=== PATIENT | female | born 1930 | race Caucasian/White ===

== ENCOUNTER 2017-04-17 11:43 | Inpatient (IN) | payer BC ==
[~2017-04-17] VITALS: Ht 165.1 cm; Wt 48.1 kg
[2017-04-17] VITALS (24 sets, daily range): BP systolic 50–143; BP diastolic 22–95; PULSE 104–143; RESP 16–33; Ht 165.1 cm; Wt 48.1 kg
[~2017-04-17 11:43] MED LIST: ALPR0.25 PO; DIGO125T PO; LOSA100T7 PO; METO-448 PO; ONDA4TAB35 PO; RISE150T3 PO; WARF3TAB PO
[2017-04-17] MEDS ORDERED: SOD CHLORIDE 0.9% 1,000 ML IV STA (13:33)
[2017-04-17] MEDS ORDERED: ONDANSETRON 4 MG INJ IV STA (13:33)
[2017-04-17] MEDS ORDERED: morphine 2 MG INJ IV STA (13:33)
[2017-04-17 13:46] LABS: ADD SCAN DIFF NO
[2017-04-17 13:55] LABS: ABNORMAL IP MESSAGE 1; HEMATOCRIT 34.3 % (37.0-47.0); HEMOGLOBIN 11.6 g/dl (12.0-16.0); MEAN CORPUSCULAR HEMOGLOBIN 31.2 pg (29.0-33.0); MEAN CORPUSCULAR HGB CONC 33.8 g/dl (32.0-37.0); MEAN CORPUSCULAR VOLUME 92.2 fl (82.0-101.0); MEAN PLATELET VOLUME 10.6 fl (7.4-10.4); PLATELET COUNT 436 10^3/UL (140-415); RED BLOOD COUNT 3.72 10^6/ul (4.20-5.40); RED CELL DISTRIBUTION WIDTH 13.2 % (11.5-14.5); WHITE BLOOD COUNT 25.5 10^3/ul (4.8-10.8)
[2017-04-17 14:11] LABS: INR 1.66; PROTIME 19.7 Sec (12.2-14.2); PT RATIO 1.5
[2017-04-17 14:12] LABS: PARTIAL THROMBOPLASTIN TIME 42.4 Sec (25.0-35.0)
[2017-04-17 14:15] LABS: ALBUMIN 4.1 g/dl (3.3-4.9); ALBUMIN/GLOBULIN RATIO 1.17; BILIRUBIN,INDIRECT 0.5 mg/dl (0-1.1); BILIRUBIN,TOTAL 0.5 mg/dl (0.2-1.3); CALCIUM 8.8 mg/dl (8.4-10.2); CREATININE 2.87 mg/dl (0.44-1.00); POTASSIUM 5.5 mmol/L (3.5-5.1); TOTAL PROTEIN 7.6 g/dl (6.1-8.1)
[2017-04-17 14:25] LABS: MONOCYTE # 1.8 10^3/ul (0.3-0.9); NEUTROPHIL # 21.7 10^3/ul (1.6-7.5)
[2017-04-17 14:26] LABS: PLATELET ESTIMATE PLT APPEAR ADEQUATE
[2017-04-17 14:29] LABS: TROPONIN-I 10.8 ng/ml (0.00-0.12)
[2017-04-17] MEDS ORDERED: HEPARIN 1000 UNITS/ML 10 ML INJ IV STA (14:40)
[2017-04-17] MEDS ORDERED: HEPARIN 25000 UNITS/250 ML 250 ML IV STA (14:40)
--- NOTE | 2017-04-17 14:53 | RADRPT ---
PROCEDURE: XR Chest. CLINICAL INDICATION: Abdominal Pain. Dyspnea. TECHNIQUE: Single frontal chest x-ray. COMPARISON: None. FINDINGS: Cardiomegaly with hilar vascular congestion is present. . No alveolar infiltrates, edema or effusio ns are seen.. Calcific atherosclerosis of the aorta is present.. The osseous structures are intact . IMPRESSION: Cardiomegaly with hilar vascular congestion.. RPTAT: QQ .Neel Camreon MD, MD Date Time Electronically viewed and signed by .Neel Cameron MD, MD on 04/17/2017 14:52 .L/
[2017-04-17] MEDS ORDERED: ASPIRIN 81 MG TAB PO ONE (15:00)
[2017-04-17] MEDS ORDERED: SOD CHLORIDE 0.9% 500 ML IV ONE (15:00)
--- NOTE | 2017-04-17 15:32 | RADRPT ---
PROCEDURE: CT Abdomen and Pelvis without intravenous contrast. CLINICAL INDICATION: LLQ pain. Weakness. TECHNIQUE: CT scan of the abdomen and pelvis without intravenous contrast was performed on a multi -slice CT scanner. Coronal and sagittal reformatted images were obtained from the axial source image s. Images were reviewed on a high-resolution PACS workstation. Total DLP = 257.8 mGy-cm. CTDIvol = 5.1 mGy. One or more of the following dose reduction techniques were used: Automated exposure control. Adjustment of the mA and/or kV according to patient size. Use of iterative reconstruction technique. COMPARISON: None. FINDINGS: CT abdomen and pelvis: The lung bases shows small bilateral pleural effusions.. The heart size enlarged especially the rig ht atrium.. The liver is normal in size and shows multiple small low-density lesions in the liver m easuring up to 1 cm possibly cysts but too small to characterize. without focal mass or intrahepatic biliary dilatation. The spleen is normal in size and homogeneous in density. The pancreas shows some coarse calcifications near the pancreatic head.. The gallbladder shows no evidence of stones or distension . The adrenal glands are normal. The right kidney is absent. The left kidney is nor mal in size. There is focal cortical scarring seen at the lateral left kidney. No definite obstruc tive uropathy or urolithiasis is seen. The stomach is partially collapsed, but is grossly unremarkable. The small bowels are unremarkable. The colon and rectum are normal. There are a few scattered colonic diverticula. There is no evidenc e of appendicitis or diverticulitis. The pelvic organs are normal. The bladder is normal. There is n o abdominal or pelvic adenopathy, free fluid, free air, mass or mesenteric inflammation. The aorta is normal in caliber with calcific atherosclerosis . The osseous structures showing degen erative spondylosis of the spine. There is fixation hardware seen in the right proximal femur. No o steolytic or osteoblastic lesions are seen.. The soft tissues are within normal limits. Lack of IV and oral contrast limits sensitivity of exam. IMPRESSION: 1. Cardiomegaly with prominent right atrial enlargement. 2. Small bilateral pleural effusions. 3. Coarse calcifications in the pancreatic head. Nonobstructing choledocholithiasis cannot be excl uded. 4. Absent right kidney. 5. Left renal scarring. 6. Fixation hardware in the right proximal femur. 7. Scattered colonic diverticula without evidence of diverticulitis. 8. Small hepatic low density lesions possibly cysts but too small to characterize. 9. Otherwise unremarkable noncontrast CT abdomen and pelvis without acute pathology identified. RPTAT: QQ .Neel Cameron MD, Date Time Electronically viewed and signed by .Neel Cameron MD, MD on 04/17/2017 15:32 .L/
[2017-04-17 16:23] LABS: ADD UMIC YES; URINE BILIRUBIN (Dip) NEGATIVE (NEGATIVE); URINE BLOOD (Dip) NEGATIVE (NEGATIVE); URINE COLOR YELLOW (YELLOW); URINE GLUCOSE (Dip) NEGATIVE (NEGATIVE); URINE KETONES (Dip) NEGATIVE (NEGATIVE); URINE LEUKOCYTE ESTERASE (Dip) NEGATIVE (NEGATIVE); URINE NITRITE (Dip) NEGATIVE (NEGATIVE); URINE TOTAL PROTEIN (Dip) 2+ (NEGATIVE); URINE UROBILINOGEN (Dip) 0.2 E.U./dL (0.1-1.0)
[2017-04-17 16:34] LABS: BACTERIA,URINE FEW; SQUAMOUS EPITHELIAL CELL,UR RARE; URINE RBCS NONE SEEN /HPF (0)
[2017-04-17] MEDS ORDERED: ACETAMINOPHEN 325 MG TAB PO PRN (17:30)
[2017-04-17] MEDS ORDERED: ONDANSETRON 4 MG INJ IV PRN (17:30)
[2017-04-17] MEDS ORDERED: CEFEPIME 2GM/50 ML (PMX) 50 ML IVPB ONE (17:30)
[2017-04-17 17:37] LABS: AADO2 Arterial 356.8 mmHg (7.0-24.0); Arterial Base Excess -16.2 mmol/L (-3.0-3); Arterial COHb 0.3 % (0.0-3.0); Arterial Fraction of Oxyhgb 95.1 % (93.0-99.0); Arterial HCO3 9.7 mmol/L (22.0-26.0); Arterial MetHb 0.4 % (0.0-1.5); Arterial Total Hemglobin 14.8 g/dl (12.0-18.0); MODE MASK - SIMPLE
[2017-04-17] MEDS ORDERED: PROPOFOL 100 ML IV STA (18:00)
--- NOTE | 2017-04-17 18:14 | ERA ---
ER Documentation Chief Complaint Date/Time DATE: 04/17/17 TIME: 18:13 Chief Complaint weak, l. sided abd pain HPI This 86-year-old female presented to the emergency room for generalized weakness and left lower quadrant abdominal pain. She was diagnosed with a UTI 4 days ago and put on ciprofloxacin. Yesterday morning she became extremely weak to where she did not even want to walk. She did not want to eat or drink either. She denied any chest pain. Denies fevers and chills. Has history of an IN 14 years ago but has had no further cardiac problems. ROS All systems reviewed and are negative except as per history of present illness. Medications Home Meds Active Scripts Ondansetron Hcl* (Zofran* ODT) 4 mg -ODT Tab.disper, 4 MG PO Q6 Y for NAUSEA AND /OR VOMITING, #10 TAB Prov:DAVIDALEJONNY DO 04/14/16 Reported Medications Risedronate* (Actonel*) 150 Mg Tablet, 150 MG PO Q28D, #1 TAB 04/14/16 Alprazolam* (Xanax*) 0.25 Mg Tablet, 0.25 MG PO DAILY Y for ANXIETY, TAB 04/14/16 Metoprolol Tartrate* (Lopressor*) 25 Mg Tab, 25 MG PO BID, #60 TAB 04/14/16 Digoxin* (Digoxin*) 0.125 Mg Tab, 0.125 MG PO DAILY, #30 TAB 04/14/16 Losartan Potassium* (Losartan Potassium*) 100 Mg Tablet, 100 MG PO DAILY, TAB 04/14/16 Warfarin Sodium* (Coumadin*) 3 Mg Tablet, 3 MG PO DAILY, TAB HOLD MEDICATION PER SON DUE TO SURGERYPLEASE RESUME RX AFTER SURGERY 04/14/16 Allergies Allergies: Coded Allergies: No Known Allergy (Unverified , 04/14/16) PMhx/Soc Hx Cardiac Disorders: Yes (HTN CHF ) Hx Alcohol Use: No Hx Substance Use: No Hx Tobacco Use: No Physical Exam Vitals Vital Signs Date Time Temp Pulse Resp B/P Pulse Ox O2 Delivery O2 Flow Rate FiO2 04/17/17 16:36 93 22 128/78 93 Nasal Cannula 2.0 04/17/17 11:47 97.8 74 28 105/56 98 Physical Exam Const: [] No distress Head: Atraumatic Eyes: Normal Conjunctiva ENT: Normal External Ears, Nose and Mouth. Neck: Full range of motion..~ No meningismus. Resp: Clear to auscultation bilaterally except for mild decreased bibasilar breath sounds Cardio: Regular rate and rhythm, no murmurs Abd: Soft, non tender, non distended. Normal bowel sounds Skin: No petechiae or rashes, pale and dry Back: No midline or flank tenderness Ext: No cyanosis, or edema Neur: Awake and alert and oriented 3, no focal deficits, equal strength all extremities Psych: Normal Mood and Affect Result Diagram: 04/17/17 1340 04/17/17 1340 Results 24 hrs Laboratory Tests Test 04/17/17 13:40 04/17/17 15:50 White Blood Count 25.510^3/ul Red Blood Count 3.7210^6/ul Hemoglobin 11.6g/dl Hematocrit 34.3% Mean Corpuscular Volume 92.2fl Mean Corpuscular Hemoglobin 31.2pg Mean Corpuscular Hemoglobin Concent 33.8g/dl Red Cell Distribution Width 13.2% Platelet Count 34709^3/UL Mean Platelet Volume 10.6fl Neutrophils % 85.0% Lymphocytes % 8.0% Monocytes % 7.0% Neutrophils # 21.710^3/ul Lymphocytes # 2.010^3/ul Monocytes # 1.810^3/ul Platelet Estimate PLT APPEAR ADEQUATE Prothrombin Time 19.7Sec Prothrombin Time Ratio 1.5 INR International Normalized Ratio 1.66 Activated Partial Thromboplast Time 42.4Sec Sodium Level 133mmol/L Potassium Level 5.5mmol/L Chloride Level 99mmol/L Carbon Dioxide Level 20mmol/L Anion Gap 20 Blood Urea Nitrogen 34mg/dl Creatinine 2.87mg/dl Glucose Level 180mg/dl Calcium Level 8.8mg/dl Total Bilirubin 0.5mg/dl Direct Bilirubin 0.00mg/dl Indirect Bilirubin 0.5mg/dl Aspartate Amino Transf (AST/SGOT) 66IU/L Alanine Aminotransferase (ALT/SGPT) 48IU/L Alkaline Phosphatase 88IU/L Troponin I 10.800ng/ml 8.810ng/ml Total Protein 7.6g/dl Albumin 4.1g/dl Globulin 3.50g/dl Albumin/Globulin Ratio 1.17 Lipase 129U/L Urine Color YELLOW Urine Clarity SL.HAZY Urine pH 6.5 Urine Specific [place] 1.010 Urine Ketones NEGATIVE Urine Nitrite NEGATIVE Urine Bilirubin NEGATIVE Urine Urobilinogen 0.2 E.U./dL Urine Leukocyte Esterase NEGATIVE Urine Microscopic RBC NONE SEEN/HPF Urine Microscopic WBC 10-25/HPF Urine Squamous Epithelial Cells RARE Urine Bacteria FEW Urine Hemoglobin NEGATIVE Urine Glucose NEGATIVE% Urine Total Protein 2+ Lactic Acid Level 5.6mmol/L Current Medications Medications (Trade) Dose Ordered Sig/Raza Route PRN Reason Start Time Stop Time Status Last Admin Dose Admin Sodium Chloride (NS) 1,000 ml @ 1,000 mls/hr Q1H STAT IV 04/17/17 13:33 04/17/17 14:32 DC 04/17/17 13:54 Morphine Sulfate (morphine) 2 mg ONCE STAT IV 04/17/17 13:33 04/17/17 13:36 DC 04/17/17 13:56 Ondansetron HCl (Zofran Inj) 4 mg ONCE STAT IV 04/17/17 13:33 04/17/17 13:36 DC 04/17/17 13:54 Aspirin (Aspirin) 324 mg ONCE ONCE PO 04/17/17 15:00 04/17/17 15:01 DC 04/17/17 15:25 Heparin Sodium (Porcine) 4000 unit 4,000 unit ONCE STAT IV 04/17/17 14:40 04/17/17 14:43 DC 04/17/17 15:22 Heparin Sodium (Porcine) 250 ml @ 0 mls/hr ONCE STAT IV 04/17/17 14:40 04/17/17 14:43 DC 04/17/17 15:24 Sodium Chloride (NS) 500 ml @ 500 mls/hr Q1H ONCE IV 04/17/17 15:00 04/17/17 15:59 DC 04/17/17 15:25 Procedures/MDM NSTEMI with sepsis, acute kidney injury and decompensation while in the emergency room. Patient likely suffered a cardiac event without chest pain yesterday when she initially became so extremely weak. UTI may have been a contributing factor. She was given aspirin and heparin while in the emergency room. Repeat EKG was performed which showed worsening ST depressions, still without STEMI. Subsequent EKG after that showed improvement of the ST depressions but new onset atrial fibrillation. Patient also seem to decompensate that she became clammy and very anxious. Started to desat on nasal cannula. She was put on nonrebreather. Eventually began she began to desaturate on that down to low 80s. She was then intubated. Spoke with family multiple times during this course. Patient did have lactic acidosis as well. Blood gas showed metabolic acidosis in spite of respiratory compensation. Patient has a single kidney with significant acute kidney injury and hyperkalemia. She will be given 30 mg of Kayexalate through the NG tube. Spoke with Dr. Oliver twice once to admit the patient in the second to inform of ICU admission. Request that I call cardiology waiter/waitress second class which happened to be Dr. Dunn who I spoke with and informed him about the patient's case. EKG #1 interpretation: 85 atrial fibrillation T-wave inversions in lateral leads suspicious for ischemia. Indeterminate axis EKG #2 interpretation: Sinus rhythm rate of 87,, worsening inferolateral ST depressions without ST elevations, indeterminate axis. EKG #3 interpretation: Atrial fibrillation rate of 85, right superior axis deviation, interval resolution of ST depressions. arabic professor interpretation: Atrial fibrillation alternating normal sinus rhythm and sinus tachycardia. No other arrhythmias Chest x-ray interpretation: I see no acute process except for engorgement of pulmonary vasculature, no pulmonary edema, no infiltrates, no pneumothorax, no fractures CT abdomen pelvis interpretation: Solitary right kidney, see no other acute process, no obstruction, no free air, no abnormal fat stranding, no fractures Perfusion assessment for septic shock: Time 1709 Blood pressure 129/81, heart rate 86, respiratory rate 20, oxygen saturation 98 % on 2 L, temperature 98.1 Skin exam: Pale, dry, no mottling Capillary refill: Presently 2 seconds Pulses: Distal pulses intact all 4 extremities Cardiac: Irregularly irregular, no murmurs Pulmonary examination: Mild decreased bibasilar breath sounds without rales Critical CARE time 63 minutes: This includes treatment of an STEMI and sepsis with decompensation, ventilator management, careful fluid administration,. Antibiotic therapy, heparinization, multiple frequent visits to the patient's bedside to reassess status after signs of decompensation, discussion with admitting doctor, family, indigo mixer, chart review. This does not include any billable procedures ET intubation note: Patient is preoccupied with bag mask ventilation. RSI was used with 20 mg of etomidate 100 mg of rocuronium size 7.5 ET tube was easily introduced through visualized vocal cords using a MAC 4 blade. Patient taught procedure well there no complications. Oxygenation was 100% after the procedure. Patient was placed on propofol drip Departure Diagnosis: Primary Impression: Non-STEMI (non-ST elevated myocardial infarction) Additional Impressions: Respiratory failure Acute kidney injury Sepsis UTI (urinary tract infection) Hyperkalemia Metabolic acidosis Lactic acidosis Condition: Critical JONNY HERNANDEZ DO Apr 17, 2017 18:14 Sodium Chloride (NS) 500 ml @ 500 mls/hr Q1H ONCE IV 04/17/17 15:00 04/17/17 15:59 DC 04/17/17 15:25 Ondansetron HCl (Zofran Inj) 4 mg ER BRIDGE PRN IV NAUSEA AND/OR VOMITING 04/17/17 17:30 04/18/17 17:29 Acetaminophen 650 mg 650 mg ER BRIDGE PRN PO MILD PAIN/FEVER 04/17/17 17:30 04/18/17 17:29 Cefepime HCl 50 ml @ 100 mls/hr ONCE ONCE IVPB 04/17/17 17:30 04/17/17 17:59 DC 04/17/17 17:37 Propofol (Diprivan) 100 ml @ 1.295 mls/ hr ONCE STAT IV 04/17/17 18:00 04/20/17 23:13 JONNY HERNANDEZ DO Apr 17, 2017 18:14
[2017-04-17] MEDS ORDERED: NA POLYST SULFON 15 GM/60 ML BTL NGT ONE (18:30)
--- NOTE | 2017-04-17 18:51 | RADRPT ---
PROCEDURE: XR Chest. CLINICAL INDICATION: Endotracheal tube placement. TECHNIQUE: 2 subsequent AP frontal chest x-ray. COMPARISON: 04/17/2017 FINDINGS: Endotracheal tube is in place with the final tip placement 3 cm above the carmel. (Initial placement was at the right mainstem bronchus). There are increased mild bilateral lower lung infiltrates. . Calcific atherosclerosis of the aorta is present.. Cardiomegaly is unchanged.. The osseous structur es are intact. IMPRESSION: Endotracheal tube placed with tip 3 cm above the carmel.. Mild bilateral lower lung infiltrates or edema. Cardiomegaly with calcified aorta. RPTAT: QQ .Neel Cameron MD, MD Date Time Electronically viewed and signed by .Neel Cameron MD, MD on 04/17/2017 18:51 .L/
[2017-04-17] MEDS ORDERED: DILTIAZEM-D5W 125MG/125ML DRIP 125 ML IV SCH (19:30)
[2017-04-17] MEDS ORDERED: SOD CHLORIDE 0.9% 1,000 ML IV SCH (19:30)
[2017-04-17] MEDS ORDERED: morphine 2 MG INJ IV PRN (19:30)
[2017-04-17 19:56] LABS: AADO2 Arterial 595.5 mmHg (7.0-24.0); Allen Test ACCEPTAB; Arterial Base Excess -19.4 mmol/L (-3.0-3); Arterial COHb 0.2 % (0.0-3.0); Arterial Fraction of Oxyhgb 91.2 % (93.0-99.0); Arterial HCO3 8.9 mmol/L (22.0-26.0); Arterial MetHb 0.5 % (0.0-1.5); Arterial Total Hemglobin 12.3 g/dl (12.0-18.0); MODE VENT - AC
[2017-04-17] MEDS ORDERED: MIDAZOLAM (DRIP) 50 mg/50 mL 50 ML IV SCH (20:00)
[2017-04-17] MEDS ORDERED: FENTAnyl (DRIP) 1000 mcg/100mL 100 ML IV SCH (20:00)
[2017-04-17] MEDS ORDERED: SOD CHLORIDE 0.9% 1,000 ML IV ONE (20:00)
[2017-04-17] MEDS ORDERED: NA BICARBONATE 8.4% 50 ML SYG ONE (20:13)
[2017-04-17] MEDS ORDERED: NA BICARBONATE 8.4% 50 ML SYG IV ONE (20:30)
[2017-04-17] MEDS ORDERED: SODIUM BICARBONATE (IV ADD) 150 MEQ in DEXTROSE 5%-0.45% NACL 1,000 ML IV SCH (20:30)
[2017-04-17] MEDS: SODIUM BICARBONATE (IV ADD) 150 MEQ in DEXTROSE 5%-0.45% NACL 1,000 ML IV SCH (20:38)
[2017-04-17] MEDS: METOPROLOL 25 MG TAB NGT SCH (21:00)
[2017-04-17 21:09] LABS: CK-MB 4.46 ng/ml (0.0-2.4); TROPONIN-I 12.5 ng/ml (0.00-0.12)
--- NOTE | 2017-04-17 21:28 | RADRPT ---
PROCEDURE: XR Chest. CLINICAL INDICATION: Endotracheal and orogastric tube placement. TECHNIQUE: Portable AP views of the chest were obtained, 2 images submitted to the PACS for review . COMPARISON: 04/17/2017 at 18:30 FINDINGS: The cardiomediastinal silhouette is enlarged. Distal tip of the endotracheal tube now projects at t he carmel. The new orogastric tube is below the diaphragm and inferior margin of the exposure the s ubtle in good position in the region of the mid stomach. Diffuse interstitial edema/infiltrates are again seen The osseous structures are intact with no evidence for acute abnormality. RPTAT:HJJR IMPRESSION: 1. Distal tip of the endotracheal tube is low lying projecting at the carmel, more caudal in positi on than on the exam from 18:30 of the same day. Consider retraction by 2-3 cm. 2. Interval placement of orogastric tube the distal tip in good position, the side-hole projecting in the mid stomach. 3. Stable cardiomegaly and diffuse interstitial infiltrates/edema unchanged from earlier the same d ay. Physician Rabia Date Time Electronically viewed and signed by Physician Rabia on 04/17/2017 21:28 /
[2017-04-17 22:11] LABS: AADO2 Arterial 254.6 mmHg (7.0-24.0); Arterial Base Excess -8.1 mmol/L (-3.0-3); Arterial COHb 0.3 % (0.0-3.0); Arterial Fraction of Oxyhgb 98.9 % (93.0-99.0); Arterial HCO3 16.4 mmol/L (22.0-26.0); Arterial MetHb 0.4 % (0.0-1.5); Arterial Total Hemglobin 13.2 g/dl (12.0-18.0); MODE VENT - AC
[2017-04-18] VITALS (70 sets, daily range): BP systolic 31–160; BP diastolic 19–143; PULSE 75–138; RESP 11–32
--- NOTE | 2017-04-18 00:03 | HP ---
DATE OF ADMISSION: 04/17/2017 CHIEF COMPLAINT: Weakness and nausea. HISTORY OF PRESENT ILLNESS: An 86-year-old female with hypertension and chronic atrial fibrillation brought into the emergency room by her son with complaint of weakness and nausea since the morning of admission. The patient was diagnosed with a non-STEMI after troponin was found to be elevated at 11. While in the emergency room, her condition deteriorated. The patient desaturated and required mechanical ventilation. She was also noted to be in active atrial fibrillation. EKG did not show any sign of STEMI. Chest x-ray was unremarkable. PAST MEDICAL HISTORY: 1. Hypertension. 2. Chronic atrial fibrillation. 3. Anxiety disorder. 4. Osteoporosis. MEDICATIONS PRIOR TO ADMISSION: 1. Coumadin 3 mg p.o. daily. 2. Digoxin 125 mcg daily. 3. Losartan 100 mg daily. 4. Lopressor 25 mg b.i.d. 5. Actonel 150 mg every 28 days. 6. Xanax 0.25 mg daily as needed. SOCIAL HISTORY: There is no history of smoking or alcohol use. Condition was discussed with carolyn beltran's daughter. She requested a DNR code status. PHYSICAL EXAMINATION: GENERAL: A well-developed, well-nourished elderly female who is intubated and sedated. VITAL SIGNS: Blood pressure 128/78, pulse is 92, respirations 22. HEENT: Pupils equal and reactive to light bilaterally. Oropharynx is clear. NECK: Supple. LUNGS: Mild rhonchi bilaterally. CARDIAC: Irregularly irregular with III/ systolic ejection murmur. ABDOMEN: Soft. Normoactive bowel sounds. EXTREMITIES: No clubbing, cyanosis, or edema. LABORATORY DATA: White blood cell count 25,500; hemoglobin 11.6, platelets 6000. INR is 1.66. Sod ium 133, potassium 5.5, chloride 99, bicarb 20, BUN 34, creatinine 2.87, glucose is 180. Lactic aci d elevated to 12.7. Initial troponin 10.8. Repeat troponin of 8.8. Chest x-ray shows endotracheal tube in place, nasogastric tube noted, cardiomegaly with diffuse interstitial infiltrates versus ed kelly. ASSESSMENT: An 86-year-old female presenting with: 1. Acute non-ST elevation myocardial infarction. 2. Atrial fibrillation with rapid ventricular response. 3. Acute hypoxemic respiratory failure. 4. History of hypertension. 5. Acute kidney injury. 6. Hyperkalemia. 7. Lactic acidosis, rule out underlying infection. 8. DNR code status per daughter's request. PLAN: 1. Admit to ICU. Continue ventilatory support. 2. Start IV Cardizem. 3. Lopressor 25 mg per NG tube b.i.d. 4. Hold the BP meds. 5. Check digoxin level. 6. Cardiology and pulmonary consultations were requested. Dictated By: BALDOMERO NELSON/BIJAL Conf#: [id number] DID#: [id number]
[2017-04-18] MEDS: HEPARIN 25000 UNITS/250 ML 250 ML IV SCH ×2 (00:55→11:42)
[2017-04-18] MEDS ORDERED: HEPARIN 1000 UNITS/ML 10 ML INJ IV ONE (01:00)
--- NOTE | 2017-04-18 03:20 | RADRPT ---
PROCEDURE: Chest. CLINICAL INDICATION: Chest pain. TECHNIQUE: Single frontal view of the chest was obtained. COMPARISON: 04/17/2017. FINDINGS: There is an endotracheal tube 2.5 cm above the cramel. There is a nasogastric tube extending to the stomach. The cardiac silhouette is enlarged. The aortic arch is calcified. There are hazy opacit ies bilaterally. There is no pneumothorax. IMPRESSION: Bilateral increased interstitial markings could represent interstitial edema or infiltrates, unchang ed. Cardiomegaly and aortic atherosclerosis. Endotracheal and nasogastric tubes in place. .Zach Hurtado MD, Date Time Electronically viewed and signed by .Zach Hurtado MD, on 04/18/2017 03:20 .T/
[2017-04-18 04:13] LABS: ADD SCAN DIFF NO
[2017-04-18 04:50] LABS: CK-MB 5.42 ng/ml (0.0-2.4)
[2017-04-18] MEDS: SODIUM BICARBONATE (IV ADD) 150 MEQ in DEXTROSE 5%-0.45% NACL 1,000 ML IV SCH (04:57)
[2017-04-18 04:59] LABS: TROPONIN-I 12.3 ng/ml (0.00-0.12)
[2017-04-18 06:43] LABS: ABNORMAL IP MESSAGE 1; HEMATOCRIT 37.7 % (37.0-47.0); HEMOGLOBIN 11.7 g/dl (12.0-16.0); MEAN CORPUSCULAR VOLUME 99.7 fl (82.0-101.0); MEAN PLATELET VOLUME 11.5 fl (7.4-10.4); PLATELET COUNT 377 10^3/UL (140-415); RED BLOOD COUNT 3.78 10^6/ul (4.20-5.40); RED CELL DISTRIBUTION WIDTH 13.9 % (11.5-14.5); WHITE BLOOD COUNT 32.8 10^3/ul (4.8-10.8)
[2017-04-18 06:50] LABS: CALCIUM 7.8 mg/dl (8.4-10.2); CREATININE 3.4 mg/dl (0.44-1.00); MAGNESIUM 2.5 mg/dl (1.7-2.5); POTASSIUM 5.2 mmol/L (3.5-5.1)
[2017-04-18] MEDS ORDERED: ALBUMIN HUMAN 25% 100 ML IV ONE (08:30)
[2017-04-18] MEDS ORDERED: FUROSEMIDE 40 MG INJ IV ONE (08:30)
[2017-04-18] MEDS ORDERED: SOD CHLORIDE 0.9% 500 ML IV ONE (08:30)
[2017-04-18] MEDS: METOPROLOL 25 MG TAB NGT SCH ×2 (09:00→21:00)
[2017-04-18] MEDS ORDERED: VANCOMYCIN IV PER PHARMACY XX SCH (09:30)
--- NOTE | 2017-04-18 09:58 | CONS ---
DATE OF ADMISSION: 04/17/2017 DATE OF CONSULTATION: 04/18/2017 NEPHROLOGY CONSULTATION REASON FOR VISIT: Acute renal failure with a creatinine of 3.4, BUN of 35, acute hyperkalemia, pota ssium 5.2, acute hypernatremia, sodium 148. REFERRING PHYSICIAN: Dr. Raleigh Oliver HISTORY OF PRESENT ILLNESS: This is an 86-year-old female who has a past medical history of hyperte nsion, anxiety, osteoporosis, chronic atrial fibrillation who was brought into the emergency room by her son with a complaint of weakness, nausea since yesterday morning. She was diagnosed with a non -ST-elevation myocardial infarction. Troponin was found to be elevated at 11. While in the emergen cy room, her condition deteriorated. She desaturated, intubated, and placed on mechanical ventilati on. The patient is also noted to have atrial fibrillation with a rapid ventricular rate. Currently her EKG did not show any sign of ST-elevation myocardial infarction. The chest x-ray was unremarka ble. She has been admitted to the ICU on ventilator support. Cardizem drip has been started for th e rate control, and a pulmonary has been consulted on the patient. REVIEW OF SYSTEMS: Unable to obtain from the patient at this point, seems that she is currently int ubated and sedated on a mechanical ventilator. PAST MEDICAL HISTORY: Notable for hypertension, anxiety disorder, osteoporosis, chronic atrial fibr illation. HOME MEDICATIONS: Prior to admission: 1. Coumadin. 2. Digoxin. 3. Losartan. 4. Lopressor. 5. Actonel. 6. Xanax. SOCIAL HISTORY: The patient has no history of smoking or alcohol abuse. She requested a DNR code s tatus. PHYSICAL EXAMINATION: VITAL SIGNS: Temperature 98.6, heart rate 86, respirations 25, blood pressure 102/53, saturation is 98% on FIO2 50% on mechanical ventilator. HEENT: Pupils equal, round, reactive to light and accommodation. ET tube in place. No JVD. NECK: Supple, no JVD, no lymphadenopathy. LUNGS: Bilateral coarse breath sounds. HEART: S1, S2, irregularly irregular. A III/ systolic ejection murmur. ABDOMEN: Soft, nontender, nondistended. Bowel sounds are present. EXTREMITIES: 1 to 2+ pitting edema. NEUROLOGICAL: Uncooperative for exam since the patient is currently intubated. LABORATORY DATA AND DIAGNOSTIC IMAGING: Sodium ____, potassium 5.2, chloride 103, bicarbonate 16, B UN 35, creatinine ____, glucose 180, calcium 7.8, magnesium 2.5. Troponin 12.3. PT 19.7, PTT 42.4, INR 1.66. WBC 32.8, hemoglobin 11.7, platelet count 327. ABG shows a pH of 7.34, pCO2 of 30, pO2 of 427, bicarbonate 16.4. Urinalysis shows 2+ total protein. Toxicology shows a digoxin level 1.3. Chest x-ray done which shows bilateral increased interstitial marking, could represent interstitial edema or infiltrates, unchanged cardiomegaly, aortic atherosclerosis, endotracheal and NG tube in pl [place]. A CT abdomen and pelvis without contrast done which shows cardiomegaly, prominent right atrial enlar gement, small bilateral pleural effusions, coarse calcifications, absent right kidney, left renal sc arring. IMPRESSION: This is an 86-year-old female who presented with Acute respiratory failure. The patien t gets intubated in the emergency room, placed on a mechanical ventilator, admitted to ICU, and nisreen jay has been consulted for: 1. Acute kidney injury versus acute kidney injury on chronic kidney disease secondary to acute tubu lar necrosis, ischemic, from cardiac issues and hemodynamics. 2. Acute vqa-ID-osfniijae myocardial infarction. 3. Acute hypoxic respiratory failure secondary to interstitial edema, currently intubated on ventil ator. 4. Atrial fibrillation with rapid ventricular rate. 5. History of hypertension. 6. Acute hyperkalemia secondary to acute kidney injury. 7. Lactic acidosis, rule out underlying infections. 8. DNR code status. PLAN: Thank you Dr. Raleigh Oliver for this consultation. 1. The patient currently on Cardizem for rate control for atrial fibrillation. Stop Losartan from her home medication list. Continue the metoprolol 25 mg NG tube b.i.d., IV antibiotics, cefepime stephens s been ordered for possible sepsis undergoing. 2. I will order some urine studies including a urine sodium, urine protein, urine creatinine, urine eosinophils, CK total, uric acid. 3. Renal ultrasound will be ordered. The patient has a history of a right nephrectomy, so we will continue to follow up on that status. 4. The patient's potassium has already been ordered, treated with Kayexalate 30 grams p.o. x1. Thi s morning potassium has been 5.2. 5. We will continue to follow this patient along with pulmonary service and cardiology consultation s. 6. I will start the patient on Bicitra state for possible mild metabolic acidosis. Currently, her pH has been around 7.3, so I would avoid a bicarbonate drip. Depending on her labs and further stat us and plan, we will continue to follow this patient along with other subspecialty service. Total time spent on this patient's evaluation, making a consultation plan, communicating with the bethanie cook's daughter and the nursing staff in ICU took more than 90 minutes. Dictated By: DWAYNE KRAUS MD, KP/BIJAL Conf#: [id number] DID#: [id number]
--- NOTE | 2017-04-18 09:59 | PN ---
Date/Time of Note Date/Time of Note DATE: 04/18/17 TIME: 09:11 Assessment/Plan VTE Prophylaxis VTE Prophylaxis Intervention: other (on Heparin gtt ) Lines/Catheters IV Catheter Type (from Nrsg): Peripheral IV Urinary Cath still in place: Yes Reason Cath still needed: other (indicate) (Dowell catheter in place ) Assessment/Plan Assessment/Plan 86-year-old female: 1. Acute hypoxemic respiratory failure 2ry to volume overload and Septic shock : patient intubated in ED and currently on Levo Patient DNR and after discussion with family no escalation of care, no HD, no additional pressors, no invasive procedures. Cardizem d/c'd On Vent no sedation Trending Lactate up to 15 overnight IV Vanco/Cefepime 2. Acute non-ST elevation myocardial infarction: trending Cardiac enzymes and on Heparin gtt currently, No B-block and Cardizem had to be stopped due to hypotension, on Levo currently 3. Atrial fibrillation with rapid ventricular response: Cardizem had to be stopped as patient hypotensive and on pressors. Will change to Naseem Getting Albumin in setting of anuric renal failure 4. Septic shock, lactic acid up to 15 last night, repeat lactate pending this AM , patient pancultured and on IV abx Vanco and Cefepime renally dosed WBC up to 32K with diff pending PICC line pending 5. Acute Renal Failure, oligo-uric in patient with a single kidney with ongoing Lactic acidosis and s/p Hyperkalemia Appreciate evaluation and recs from Nephrology Dr Sutton, getting Albumin this AM and on Bicarb gtt NO HD as DNR 6. History of hypertension; all meds on hold while patient in shock state . Prophylaxis: on Heparin gtt wiith AMI, PPI for GI ppx Disposition: DNR and no escalation of care, continue current treatment and reassess later regarding ? comfort care Very poor prognosis Subjective 24 Hr Interval Summary Free Text/Dictation Patient lethargic, no sedation but responsive to voice Severely hypotensive and on Heparin gtt and Levo DNR and no escalation of care per family Exam/Review of Systems Vital Signs Vitals Vital Signs Date Time Temp Pulse Resp B/P Pulse Ox O2 Delivery O2 Flow Rate FiO2 04/18/17 08:00 84 04/18/17 07:45 25 102/53 98 Mechanical Ventilator 04/18/17 07:30 50 04/18/17 07:15 99.2 04/17/17 16:36 2.0 Intake and Output 04/17/17 04/17/17 04/18/17 15:00 23:00 07:00 Intake Total 1435.61 ml 1352.80 ml Output Total 135 ml 100 ml Balance 1300.61 ml 1252.80 ml Exam Constitutional: frail, other (lethargic but responsive to questions ) Respiratory: diminished breath sounds (bases primarly bilaterally ), other (on Vent ) Cardiovascular: irregular rhythm Gastrointestinal: non-tender, soft Musculoskeletal: other (no edema, clubbing or cyanosis ) Extremities: normal pulses Neurological: lethargic, other (responsive,no sedation on Vent ) Results Result Diagram: 04/18/17 0516 04/18/17 0516 Results 24 hrs Laboratory Tests Test 04/17/17 13:40 04/17/17 15:50 04/17/17 17:08 04/17/17 19:01 White Blood Count 25.5 #H Red Blood Count 3.72 L Hemoglobin 11.6 L Hematocrit 34.3 L Mean Corpuscular Volume 92.2 Mean Corpuscular Hemoglobin 31.2 Mean Corpuscular Hemoglobin Concent 33.8 Red Cell Distribution Width 13.2 Platelet Count 436 H Mean Platelet Volume 10.6 #H Neutrophils % 85.0 H Lymphocytes % 8.0 L Monocytes % 7.0 Neutrophils # 21.7 H Lymphocytes # 2.0 Monocytes # 1.8 H Platelet Estimate PLT APPEAR ADEQUATE Prothrombin Time 19.7 H Prothrombin Time Ratio 1.5 INR International Normalized Ratio 1.66 Activated Partial Thromboplast Time 42.4 H Sodium Level 133 L Potassium Level 5.5 H Chloride Level 99 Carbon Dioxide Level 20 L Anion Gap 20 H Blood Urea Nitrogen 34 H Creatinine 2.87 H Glucose Level 180 Calcium Level 8.8 Total Bilirubin 0.5 Direct Bilirubin 0.00 Indirect Bilirubin 0.5 Aspartate Amino Transf (AST/SGOT) 66 H Alanine Aminotransferase (ALT/SGPT) 48 Alkaline Phosphatase 88 Troponin I 10.800 *H 8.810 *H Total Protein 7.6 Albumin 4.1 Globulin 3.50 H Albumin/Globulin Ratio 1.17 Lipase 129 Urine Color YELLOW Urine Clarity SL.HAZY Urine pH 6.5 Urine Specific [place] 1.010 Urine Ketones NEGATIVE Urine Nitrite NEGATIVE Urine Bilirubin NEGATIVE Urine Urobilinogen 0.2 E.U./dL Urine Leukocyte Esterase NEGATIVE Urine Microscopic RBC NONE SEEN Urine Microscopic WBC 10-25 Urine Squamous Epithelial Cells RARE Urine Bacteria FEW Urine Hemoglobin NEGATIVE Urine Glucose NEGATIVE Urine Total Protein 2+ H Lactic Acid Level 5.6 *H Blood Gas Specimen Source Blood arterial Blood arterial Arterial Blood Date Drawn 04/17/2017 5:30:14 PM 04/17/2017 7:40:15 PM Arterial Blood pH (Temp corrected) 7.216 *L 7.098 *L Arterial Blood pCO2 (Temp correct) 24.4 L 29.6 L Arterial Blood pO2 (Temp corrected) 99.2 H 87.9 Arterial Blood HCO3 9.7 *L 8.9 *L Arterial Blood Base Excess -16.2 L -19.4 L Arterial Blood Oxygen Saturation 95.8 91.8 L Hugo Test N/A ACCEPTAB Arterial Blood Gas Puncture Site Right Brachial LB Arterial Blood Carboxyhemoglobin 0.3 0.2 Arterial Blood Methemoglobin 0.4 0.5 Blood Gas A-a O2 Differential 356.8 H 595.5 H Oxyhemoglobin Percent 95.1 91.2 L Total Hemoglobin 14.8 12.3 Blood Gas Temperature 37.0 37.0 Blood Gas Modality MASK - SIMPLE VENT - AC FiO2 69.0 100.0 Blood Gas Critical Value Read Back MD JENNIFER BECKFORD RN Blood Gas Notified Whom ZHNANA PAN Blood Gas Notified Time 04/17/2017 5:37:23 PM 04/17/2017 7:56:19 PM Blood Gas Respiration Rate 18.0 Blood Gas Actual Respiration Rate 18 Blood Gas Tidal Volume 450.0 Blood Gas Low PEEP Setting 5.0 Test 04/17/17 20:25 04/17/17 22:00 04/17/17 22:40 04/18/17 03:28 Lactic Acid Level 12.7 *H 15.5 *H Creatine Kinase 105 98 Creatine Kinase Index 4.2 5.5 Creatinine Kinase MB (Mass) 4.46 H 5.42 H Troponin I 12.500 *H 12.300 *H Blood Gas Specimen Source Blood arterial Arterial Blood Date Drawn 04/17/2017 10:00:46 PM Arterial Blood pH (Temp corrected) 7.343 L Arterial Blood pCO2 (Temp correct) 30.8 L Arterial Blood pO2 (Temp corrected) 427.6 H Arterial Blood HCO3 16.4 L Arterial Blood Base Excess -8.1 L Arterial Blood Oxygen Saturation 99.6 Hugo Test N/A Arterial Blood Gas Puncture Site Right Brachial Arterial Blood Carboxyhemoglobin 0.3 Arterial Blood Methemoglobin 0.4 Blood Gas A-a O2 Differential 254.6 H Oxyhemoglobin Percent 98.9 Total Hemoglobin 13.2 Blood Gas Temperature 37.0 Blood Gas Respiration Rate 18.0 Blood Gas Actual Respiration Rate 18 Blood Gas Modality VENT - AC FiO2 100.0 Blood Gas Tidal Volume 450.0 Blood Gas Low PEEP Setting 5.0 Blood Gas Inspiratory Pressure 27.0 Blood Gas Notified Whom Andreina NEGRO RCP Blood Gas Notified Time 04/17/2017 10:10:45 PM Digoxin Level 1.3 Test 04/18/17 05:16 White Blood Count 32.8 #H Red Blood Count 3.78 L Hemoglobin 11.7 L Hematocrit 37.7 Mean Corpuscular Volume 99.7 Mean Corpuscular Hemoglobin 31.0 Mean Corpuscular Hemoglobin Concent 31.0 L Red Cell Distribution Width 13.9 Platelet Count 377 Mean Platelet Volume 11.5 H Sodium Level 148 #H Potassium Level 5.2 H Chloride Level 103 Carbon Dioxide Level 16 L Anion Gap 34 #H Blood Urea Nitrogen 35 H Creatinine 3.40 H Glucose Level 188 Calcium Level 7.8 L Magnesium Level 2.5 Medications Medications Current Medications Diltiazem HCl (Cardizem-D5W 125 Mg/125 ml Drip) 125 ml @ 5 mls/hr TITRATE IV Last administered on 04/18/17 00:51; Admin Dose 5 MLS/HR; Start 04/17/17 at 19:30 Metoprolol Tartrate (Lopressor) 25 mg BID NGT ; Start 04/17/17 at 21:00 Morphine Sulfate 2 mg 2 mg Q3H PRN IV PAIN; Start 04/17/17 at 19:30 Norepinephrine 16 mg/Dextrose 500 ml @ 1.87 mls/hr TITRATE IV Last administered on 04/17/17 20:35; Admin Dose 7.5 MLS/HR; Start 04/17/17 at 20:00 Midazolam HCl 50 ml @ 1 mls/hr TITRATE IV ; Start 04/17/17 at 20:00 Fentanyl 100 ml @ 2.5 mls/hr TITRATE IV ; Start 04/17/17 at 20:00 Sodium Bicarbonate 150 meq/Dextrose/ Sodium Chloride 1,150 ml @ 125 mls/hr Q9H12M IV Last administered on 04/18/17t 04:57; Admin Dose 125 MLS/HR; Start 04/17/17 at 20:30 Albumin Human 100 ml @ 100 mls/hr ONCE ONCE IV ; Start 04/18/17 at 08:30; Stop 04/18/17 at 09:29 Sodium Chloride (NS) 500 ml @ 500 mls/hr Q1H ONCE IV ; Start 04/18/17 at 08:30; Stop 04/18/17 at 09:29 BETY ELLIOTT Apr 18, 2017 09:21
[2017-04-18] MEDS ORDERED: VANCOMYCIN 1 GM in NS 250 ML IVPB SCH (10:00)
[2017-04-18] MEDS ORDERED: LIDOCAINE 1% (MPF) 5 ML VIAL SC ONE (10:00)
[2017-04-18] MEDS ORDERED: NA BICARBONATE 8.4% 50 ML SYG IV STA (10:23)
--- NOTE | 2017-04-18 10:48 | RADRPT ---
PROCEDURE: Renal US. CLINICAL INDICATION: Renal failure TECHNIQUE: Multiple sonographic images of the kidneys were obtained. The images were reviewed on a PACS workstation. COMPARISON: No prior studies are available for comparison. FINDINGS: The right kidney has been removed. The left kidney measures 9.6 cm. Left kidney demonstrates a joão l echogenicity. No masses, stones or hydronephrosis are identified. Vascularity is noted in the lef t kidney. The bladder is collapsed. The visualized aorta and inferior vena cava are unremarkable. IMPRESSION: Status post right nephrectomy. Unremarkable left kidney. RPTAT: AA .Yang Haywood MD, Date Time Electronically viewed and signed by .Yang Haywood MD, MD on 04/18/2017 10:48 .P/
[2017-04-18 10:55] LABS: LYMPHOCYTES # 1.6 10^3/ul (0.8-2.9); MONOCYTE # 1.3 10^3/ul (0.3-0.9); MYELOCYTES # 0.3
[2017-04-18 10:58] LABS: AADO2 Arterial 243.7 mmHg (7.0-24.0); Arterial Base Excess -0.1 mmol/L (-3.0-3); Arterial COHb 0.2 % (0.0-3.0); Arterial Fraction of Oxyhgb 96.5 % (93.0-99.0); Arterial HCO3 20.3 mmol/L (22.0-26.0); Arterial MetHb 0.3 % (0.0-1.5); Arterial Total Hemglobin 12.3 g/dl (12.0-18.0); MODE VENT - AC
[2017-04-18 11:30] LABS: CK-MB 3.68 ng/ml (0.0-2.4)
[2017-04-18 11:34] LABS: TROPONIN-I 8.71 ng/ml (0.00-0.12)
[2017-04-18] MEDS ORDERED: SOD CHLORIDE 0.9% 1,000 ML IV SCH (12:30)
--- NOTE | 2017-04-18 12:42 | RADRPT ---
PROCEDURE: US guidance for PICC line CLINICAL INDICATION: PICC line placement TECHNIQUE: Multiple real-time images were acquired of the patient's arm utilizing a high resolutio n transducer. This was performed by the PICC line nurse for venous access. COMPARISON: None FINDINGS: Ultrasound guidance for PICC line placement. Patent and compressible left upper extremity vein. IMPRESSION: Ultrasound guidance for PICC line placement. RPTAT: AA Physician Serene Date Time Electronically viewed and signed by Marco Antonio Apple Physician on 04/18/2017 12:42 RA/
--- NOTE | 2017-04-18 12:42 | RADRPT ---
PROCEDURE: XR Chest. CLINICAL INDICATION: Check Line Placement TECHNIQUE: Single frontal view of the chest was obtained. COMPARISON: Chest x-ray from 04/18/2017 at 01:23 hours FINDINGS: There has been interval placement of a left-sided PICC line with its tip curled back upon itself in the left brachiocephalic vein. The endotracheal tube and enteric tube are unchanged in position. There is stable cardiomegaly and mild pulmonary vascular congestion versus diffuse bilateral infiltr ates, more prominent in the right lower lung zone. There is no significant pleural effusion or pneumothorax. IMPRESSION: Interval placement of a left-sided PICC line with its tip curled back upon itself in the brachioceph alic vein. RPTAT: EE Physician Serene Date Time Electronically viewed and signed by Physician Serene on 04/18/2017 12:42 RA/
--- NOTE | 2017-04-18 12:45 | RADRPT ---
PROCEDURE: XR Chest. CLINICAL INDICATION: Check Line Placement TECHNIQUE: Single frontal view of the chest was obtained. COMPARISON: Chest x-ray from 04/18/2017 at 12:15 hours FINDINGS: The left-sided PICC line seen previously has been repositioned with its tip now at the superior cavo atrial junction. The endotracheal tube and enteric tube are unchanged in position. There is stable cardiomegaly and mild pulmonary vascular congestion versus diffuse bilateral infiltr ates, more prominent in the right lower lung zone. There is no significant pleural effusion or pneumothorax. IMPRESSION: Interval repositioning of the left-sided PICC line with its tip now at the superior cavoatrial junct ion. RPTAT: EE Physician Serene Date Time Electronically viewed and signed by Marc oAntonio Apple Physician on 04/18/2017 12:44 /
--- NOTE | 2017-04-18 12:46 | CONS ---
DATE OF ADMISSION: 04/17/2017 DATE OF CONSULTATION: TYPE OF CONSULTATION: Pulmonology. REASON FOR CONSULTATION: Ventilator management. Thank you, Dr. Hall, for this consultation. HISTORY OF PRESENT ILLNESS: This is an unfortunate 86-year-old lady with multiple medical problems, brought in to the emergency room yesterday with nausea, vomiting, altered mental status with worsen ing respiratory distress and hypoxemia requiring emergent intubation and mechanical ventilation. Si nce that time, patient is intubated and sedated, remains hypotensive requiring vasopressors. PAST MEDICAL HISTORY: Atrial fibrillation, hypertension, hyperlipidemia. MEDICATIONS: Per chart. ALLERGIES: NONE. SOCIAL HISTORY: Nonsmoker. No alcohol. No history of drug use. FAMILY HISTORY: Noncontributory. SYSTEMS REVIEW: Twelve-point review of systems currently unable to perform. PHYSICAL EXAMINATION: GENERAL: Chronically ill appearing lady, intubated and sedated, appears comfortable at rest. VITAL SIGNS: Temperature 98. Pulse is 80. Blood pressure is 60/40. O2 sat 96% on FIO2 of 50%, or ally intubated. HEENT: Dry mucous membranes. Pupils equal and reactive to light. CARDIAC: S1, S2. No added sounds or murmurs. CHEST: Diminished air entry bilaterally. ABDOMEN: Soft, nontender. No guarding or rebound. EXTREMITIES: No cyanosis, clubbing, or edema. NEUROLOGICAL: Unable to assess. LABORATORY DATA: White count 32.8, hemoglobin 11.7, platelets 377. BUN 35, creatinine 3.4. INR 1. 66. ABG: PH 7.34, pCO2 of 30, PaO2 of 427, bicarb 15. Chest x-ray was reviewed, shows bilateral i nterstitial markings consistent with pulmonary edema. IMPRESSION AND PLAN: 1. Acute hypoxemic respiratory failure. 2. Non-ST elevation myocardial infarction. 3. Acute renal failure with severe metabolic acidosis. 4. Lactic acidosis, possible underlying infection. 5. Code status: Do not resuscitate/do not intubate. PLAN: 1. Continue aggressive volume resuscitation. 2. Broad-spectrum antibiotic coverage. 3. Renal recommendations for worsening lactic acidosis. Lactic acid now 22.9 with elevated troponi n which has a very grave prognosis. Primary care discussing with family regarding goals of care. F amily may request withdrawal of aggressive measures. Dictated By: KATHLEEN EDMONDS/BIJAL Conf#: [id number] DID#: [id number]
[2017-04-18] MEDS: DEXTROSE 5%-0.45% NACL 1,000 ML IV SCH (13:02)
[2017-04-18] MEDS: DIGOXIN 500 MCG INJ IV SCH ×2 (13:04→18:47)
[2017-04-18] MEDS ORDERED: SOD CHLORIDE 0.9% 100 ML ONE (14:02)
--- NOTE | 2017-04-18 14:27 | RADRPT ---
Echocardiogram Report Patient Name: YOSEF JULIAN Gender: Female Date: 1930 Study Date: 18-Apr-2017 Aircraft Skin Burnisher: Darlin Edgar RDCS Location: [facility] Ref. Physician: ARTIE ELLIOTT Quality: Good Procedures: Transthoracic echocardiogram with complete 2D, M-Mode, and doppler examination. Indications: Evaluate Left Ventricular function. 2D/M Mode Doppler Measurement Value Normal Ranges Measurement Value Normal Ranges LVIDd 2D 4.0 3.5 - 5.6 cm AV Peak David 1.8 m/sec LVIDs 2D 1.4 2.1 - 4.1 cm AV Peak PG 12.0 mmHg FS 2D 63.8 % AI Peak PG 65.0 mmHg LVPWd 2D 0.9 0.6 - 1.1 cm AI Peak David 4.0 m/sec IVSd 2D 0.9 0.6 - 1.1 cm AI PHT 395.0 msec IVS/LVPW 2D 1.0 LVOT Peak David 0.9 m/sec AoR Diam 2D 2.5 2.0 - 3.7 cm LVOT Peak PG 3.0 mmHg LA/Ao 2D 2 0 - 1 MV E Peak David 2.2 m/sec EDV 2D 61.6 cm3 MV PHT 37.0 msec ESV 2D 2.9 cm3 MV Peak David 2.6 m/sec LA Dimen 2D 4.7 2.3 - 4.0 cm MV Peak PG 27.0 mmHg MV Mean David 1.3 m/sec MV Mean PG 9.0 mmHg MV Decel Time 162 msec MV Decel Cowley 20 MV PHT Peak David 2.5 m/sec MV PHT 37.0 msec MV VTI 37.8 cm MVA PHT 5.9 cm2 TR Peak David 4.2 m/sec TR Peak PG 69.0 mmHg RVSP 77.0 mmHg Findings Left Ventricle: Normal left ventricular systolic function. Normal left ventricular cavity size. Normal left ventricular wall thickness. Ejection fraction is visually estimated at 55 %. These segments of the LV are hypokinetic anterolateral base and anterolateral mid segment. Right Ventricle: Normal right ventricular size. Normal right ventricular systolic function. Left Atrium: There is moderate enlargement of left atrium. Right Atrium: There is severe enlargement of right atrium. Mitral Valve: Moderate mitral leaflet calcification. Mild mitral annular calcification. Moderate to severe mitral valve regurgitation. The regurgitation jet is eccentrically directed which may underestimate the severity of mitral regurgitation. Aortic Valve: Aortic cusps appear mildly calcified. Mild to moderate aortic valve regurgitation. Tricuspid Valve: Estimated peak PA systolic pressure 77 mmHg. Tricuspid valve appears mildly thickened. There is moderate to severe tricuspid regurgitation. Pulmonic Valve: There is moderate pulmonic regurgitation. Pericardium: Normal pericardium with no significant pericardial effusion. Pleural effusion seen. Aorta: Normal aortic root. IVC: Inferior vena cava without respiratory collapse, however, patient on ventilator. Conclusions 1.Normal left ventricular systolic function. Normal left ventricular cavity size. Normal left ventricular wall thickness. Ejection fraction is visually estimated at 55 %. These segments of the LV are hypokinetic anterolateral base and anterolateral mid segment. 2.There is severe enlargement of right atrium. 3.There is moderate enlargement of left atrium. 4.Mild to moderate aortic valve regurgitation. 5.Estimated peak PA systolic pressure 77 mmHg. Tricuspid valve appears mildly thickened. There is moderate to severe tricuspid regurgitation. 6.There is moderate pulmonic regurgitation. 7.Moderate to severe mitral valve regurgitation. The regurgitation jet is eccentrically directed which may underestimate the severity of mitral regurgitation. 8.Questionable hyperechoic structure on mitral valve leaflet , seen on limited views, which could be concerning for a vegetation. Electronically Signed By: Jean Paul Pacheco 18-Apr-2017 14:26:24 -0700 Patient Name: YOSEF JULIAN Study Date: 18-Apr-2017 [id number]
--- NOTE | 2017-04-18 14:51 | CONS ---
DATE OF ADMISSION: 04/17/2017 DATE OF CONSULTATION: 04/18/2017 REASON FOR CONSULTATION: Positive troponin with non-ST elevation myocardial infarction, atrial fibrillation with rapid ventricular response. REQUESTING PHYSICIAN: Dr. Oliver HISTORY OF PRESENT ILLNESS: Ms. Best is an 86-year-old female with history of hypertension, atrial fibrillation on Coumadin, anxiety disorder, osteoporosis who was brought in initially with complaints of weakness, nausea in the morning. Upon arrival to the emergency department on April 17 temperature 97.8, blood pressure 105/56, pulse 74, respiratory rate 28, saturating 98%. The patient's labs revealed a white count of 25.5, hemoglobin 11.6, platelet count of 436. Sodium 133, potassium 5.5, creatinine 2.87, BUN 34. Troponin 10.8, INR of 1.66. Digoxin level 1.3. UA negative. ABG revealing a pH of 7.216, a PaO2 of 99, a pCO2 of 24. The patient underwent a chest x-ray after intubation revealing a endotracheal tube 3 cm above the carmel, mild bilateral lower lung infiltrates or edema. The patient underwent a CT revealing cardiomegaly and prominent right atrial enlargement, small bilateral effusions. ____ in the right proximal femur, small hepatic low density lesions, possibly cysts and renal ultrasound revealing patient is status post right nephrectomy, normal echogenicity. The patient's electrocardiogram on admission had revealed atrial fibrillation at a rate of 85 with a right axis deviation and inferior and lateral biphasic T-wave abnormalities and borderline anterior R-wave progression. The patient subsequently has required intubation, admitted to the ICU where she is on pressor support. The patient is DNR at this time. The patient has had troponins trended going from 10.8 to a peak of 12.5 and then down to 8.7 as of this morning with a negative CK-MB component. PAST MEDICAL HISTORY: As above in HPI. MEDICATIONS CURRENTLY IN HOSPITAL: 1. Cefepime. 2. Vancomycin. 3. Heparin IV. 4. Metoprolol 25 mg p.o. b.i.d. but on hold currently. 5. Levophed pressor support. 6. Versed. 7. Fentanyl 8. Morphine. ALLERGIES: NO KNOWN DRUG ALLERGIES. SOCIAL HISTORY: No tobacco, ETOH or illicit drug use. FAMILY HISTORY: No history of sudden cardiac or early CAD. REVIEW OF SYSTEMS: As above in HPI. CONSTITUTIONAL: No fevers, chills. PULMONARY: Respiratory failure, status post intubation. GASTROINTESTINAL: No vomiting. GENITOURINARY: Renal failure. PSYCHIATRIC: No documented psych history. NEUROLOGIC: Altered mental state. CARDIOVASCULAR: Atrial fibrillation, non-ST elevation myocardial infarction. PHYSICAL EXAMINATION: VITAL SIGNS: Temperature of 99.2, blood pressure most recently 55/36, pulse 117 , satting 100% on FIO2 of 50%. GENERAL: The patient is intubated, sedated. NECK: JVP approximately 9 cm of water. CHEST: Upper airway sounds are rhonchorous sounds. HEART: Irregularly irregular, tachycardic. A I/ systolic murmur. ABDOMEN: Positive bowel sounds, soft. EXTREMITIES: No pitting edema. Some mottling, 1+ pulses bilaterally, posterior tibial. LABORATORY DATA: Most recent from today, sodium 148, potassium 5.2, creatinine 2.4, BUN of 35, ____ 22.9, troponin down to 8.7 from a peak of 12.3. White blood cell count 32.8, hemoglobin 11.7, platelet count 377. ABG revealing a pH of 7.57, a PaO2 of 22, a pO2 of 87, pCO2 of 22. ECG: From today reveals rhythm most consistent with atrial fibrillation at 116 , left axis deviation, nonspecific IVCD, poor R-wave progression across the anterior precordial leads. IMPRESSION: 1. Non-ST elevation myocardial infarction with currently downtrending cardiac enzymes on heparin. 2. Abnormal electrocardiogram with intraventricular conduction delay likely related, as ____ did not have one initially versus ischemia. 3. Likely congestive heart failure by chest x-ray, question systolic versus diastolic, but acute. 4. Respiratory failure, status post intubation. 5. Leukocytosis, worsening. 6. Anemia. 7. Lactic acidosis. 8. Hypernatremia. 9. Renal failure. 10. Coagulopathy. 11. Atrial fibrillation with rapid ventricular response. RECOMMENDATIONS: 1. At this time, I would maintain the patient on telemetry monitoring. 2. Patient is having worsening hypotension and shock state. 3. Atrial fibrillation with rapid ventricular response. 4. Hypertension/shock. RECOMMENDATIONS: 1. At this time, would maintain the patient on telemetry monitoring. 2. Maintain the patient on Levophed pressure support with the patient now being a DNR per family was not wanting initiation of further pressures and therefore, we will continue to monitor the patient's blood pressure expectantly and as possible. 2. Will give patient a dose of digoxin in attempt to improve heart rate control. 3. Check a 2D echocardiogram to further assess the patient's ejection fraction , wall motion and any major abnormalities. 4. Continue the patient's heparin for now for prevention of thrombolic events in the setting of atrial fibrillation as well as for treatment of non-ST myocardial infarction. 5. Continue to trend the patient's cardiac enzymes at this time. 6. Continue the patient's antibiotics and follow up all cultures data. 7. Would consider gentle diuresis when and if patient's blood pressures have stabilized. Thank you for allowing me to take part in the care of this patient. I will continue to follow along very closely with you. Further recommendations will be made as the patient progresses through her inpatient hospital clinical course. Dictated By: MONAE ZAMUDIO/BIJAL Conf#: [id number] DID#: [id number] CC: BALDOMERO OLIVER MD;*EndCC* MTDD
[2017-04-18 15:51] LABS: PROTIME 57.4 Sec (12.2-14.2); PT RATIO 4.5
[2017-04-18 15:59] LABS: INR 6.37
[2017-04-18 16:37] LABS: PROTEIN/CREAT RATIO 1.6 RATIO
[2017-04-18] MEDS ORDERED: CEFEPIME 2GM/50 ML (PMX) 50 ML IVPB SCH (17:00)
[2017-04-18 18:53] LABS: CK-MB 9.03 ng/ml (0.0-2.4)
[2017-04-18 19:14] LABS: TROPONIN-I 20.4 ng/ml (0.00-0.12)
[2017-04-19] VITALS (22 sets, daily range): BP systolic 32–129; BP diastolic 12–106; PULSE 60–104; RESP 12–33
[2017-04-19 01:47] LABS: CK-MB 9.6 ng/ml (0.0-2.4)
[2017-04-19 01:49] LABS: TROPONIN-I 23.8 ng/ml (0.00-0.12)
[2017-04-19 04:46] LABS: ADD SCAN DIFF NO
[2017-04-19 04:56] LABS: HEMATOCRIT 32.9 % (37.0-47.0); HEMOGLOBIN 10.2 g/dl (12.0-16.0); MEAN CORPUSCULAR HEMOGLOBIN 30.8 pg (29.0-33.0); MEAN CORPUSCULAR VOLUME 99.4 fl (82.0-101.0); MEAN PLATELET VOLUME 11.9 fl (7.4-10.4); PLATELET COUNT 317 10^3/UL (140-415); RED BLOOD COUNT 3.31 10^6/ul (4.20-5.40); RED CELL DISTRIBUTION WIDTH 13.7 % (11.5-14.5); WHITE BLOOD COUNT 22.2 10^3/ul (4.8-10.8)
[2017-04-19 05:20] LABS: HDL CHOLESTEROL 20 mg/dl (33-92); TRIGLYCERIDES 246 mg/dl (0-149)
[2017-04-19 05:24] LABS: ALBUMIN 2.9 g/dl (3.3-4.9); ALBUMIN/GLOBULIN RATIO 1.45; BILIRUBIN,INDIRECT 0.5 mg/dl (0-1.1); BILIRUBIN,TOTAL 0.5 mg/dl (0.2-1.3); CALCIUM 6.5 mg/dl (8.4-10.2); CREATININE 4.49 mg/dl (0.44-1.00); TOTAL PROTEIN 4.9 g/dl (6.1-8.1)
[2017-04-19 05:26] LABS: CHOLESTEROL < 50 mg/dl (100-200)
[2017-04-19] MEDS: DEXTROSE 5%-0.45% NACL 1,000 ML IV SCH (05:35)
[2017-04-19 05:59] LABS: POTASSIUM 6.6 mmol/L (3.5-5.1)
[2017-04-19] MEDS ORDERED: DEXTROSE 50% 50 ML SYRINGE ONE (06:07)
[2017-04-19] MEDS ORDERED: INSULIN REGULAR, HUMAN 100 UNIT/1 ML 3ML VIAL IV STA (06:22)
[2017-04-19] MEDS ORDERED: CALCIUM GLUCONATE 10% 2 GM in SOD CHLORIDE 0.9% 100 ML IVPB ONE (06:30)
[2017-04-19] MEDS ORDERED: DEXTROSE 50% 50 ML SYRINGE IV PRN (06:30)
[2017-04-19] MEDS ORDERED: NA POLYST SULFON 15 GM/60 ML BTL PO ONE (06:30)
[2017-04-19] MEDS ORDERED: DEXTROSE 50% 50 ML SYRINGE IV ONE (07:00)
[2017-04-19] MEDS: METOPROLOL 25 MG TAB NGT SCH (08:08)
[2017-04-19 08:29] LABS: MAGNESIUM 2.1 mg/dl (1.7-2.5); PHOSPHORUS 7.1 mg/dl (2.5-4.9)
[2017-04-19] MEDS ORDERED: morphine (DRIP) 100 MG/100 ML 100 ML IV SCH (09:30)
[2017-04-19] MEDS ORDERED: LORAZEPAM 2 MG INJ IV PRN (09:30)
--- NOTE | 2017-04-19 09:43 | CONS ---
Date/Time of Note Date/Time of Note DATE: 04/19/17 TIME: 09:40 Consult Date/Type/Reason Admit Date/Time Apr 17, 2017 at 17:07 Initial Consult Date Type of Consultation: Pulmonary ICU Subjective Patient remains unresponsive on mechanical ventilation. Family requested comfort care with withdrawal of life support. Objective Vital Signs Date Time Temp Pulse Resp B/P Pulse Ox O2 Delivery O2 Flow Rate FiO2 04/19/17 09:01 72 20 51/ 99 Mechanical Ventilator 04/19/17 08:00 101.9 04/19/17 08:00 50 04/17/17 16:36 2.0 Intake and Output 04/18/17 04/18/17 04/19/17 15:00 23:00 07:00 Intake Total 2048.82 ml 1114.00 ml 900.00 ml Output Total 5 ml 35 ml 60 ml Balance 2043.82 ml 1079.00 ml 840.00 ml Exam PHYSICAL EXAMINATION: GENERAL: Chronically ill appearing lady, intubated and sedated, appears comfortable at rest. VITAL SIGNS: HEENT: Dry mucous membranes. Pupils equal and reactive to light. CARDIAC: S1, S2. No added sounds or murmurs. CHEST: Diminished air entry bilaterally. ABDOMEN: Soft, nontender. No guarding or rebound. EXTREMITIES: No cyanosis, clubbing, or edema. NEUROLOGICAL: Unable to assess. Results/Medications Result Diagram: 04/19/17 0400 04/19/17 0400 Results 24 hrs Laboratory Tests Test 04/18/17 09:43 04/18/17 10:23 04/18/17 15:07 04/18/17 15:30 Activated Partial Thromboplast Time 73.2 *H Blood Gas Specimen Source Blood arterial Arterial Blood Date Drawn 04/18/2017 10:45:41 AM Arterial Blood pH (Temp corrected) 7.570 *H Arterial Blood pCO2 (Temp correct) 22.7 L Arterial Blood pO2 (Temp corrected) 87.3 Arterial Blood HCO3 20.3 L Arterial Blood Base Excess -0.1 Arterial Blood Oxygen Saturation 97.0 Hugo Test N/A Arterial Blood Gas Puncture Site LB Arterial Blood Carboxyhemoglobin 0.2 Arterial Blood Methemoglobin 0.3 Blood Gas A-a O2 Differential 243.7 H Oxyhemoglobin Percent 96.5 Total Hemoglobin 12.3 Blood Gas Temperature 37.0 Blood Gas Respiration Rate 18.0 Blood Gas Actual Respiration Rate 28 Blood Gas Modality VENT - AC FiO2 50.0 Blood Gas Tidal Volume 450.0 Blood Gas Low PEEP Setting 5.0 Blood Gas Critical Value Read Back Jeremiah ROSE RN Blood Gas Notified Whom JLD Blood Gas Notified Time 04/18/2017 10:57:27 AM Prothrombin Time 57.4 #H Prothrombin Time Ratio 4.5 INR International Normalized Ratio 6.37 *H Urine Eosinophils % 0.0 Urine Random Creatinine 78.71 Urine Random Sodium 28 L Urine Protein/Creatinine Ratio 1.60 Urine Total Protein 126.0 H Test 04/18/17 18:10 04/19/17 00:37 04/19/17 04:00 04/19/17 06:08 Creatine Kinase 684 #H 1065 #H Creatine Kinase Index 1.3 0.9 Creatinine Kinase MB (Mass) 9.03 H 9.60 H Troponin I 20.400 *H 23.800 *H White Blood Count 22.2 #H Red Blood Count 3.31 L Hemoglobin 10.2 L Hematocrit 32.9 L Mean Corpuscular Volume 99.4 Mean Corpuscular Hemoglobin 30.8 Mean Corpuscular Hemoglobin Concent 31.0 L Red Cell Distribution Width 13.7 Platelet Count 317 Mean Platelet Volume 11.9 H Neutrophils % Lymphocytes % Monocytes % Eosinophils % Neutrophils # Lymphocytes # Monocytes # Eosinophils # Sodium Level 138 Potassium Level 6.6 *H Chloride Level 100 Carbon Dioxide Level 13 L Anion Gap 32 H Blood Urea Nitrogen 40 H Creatinine 4.49 #H Glucose Level 47 #*L Lactic Acid Level 20.2 *H Calcium Level 6.5 L Phosphorus Level 7.1 H Magnesium Level 2.1 Total Bilirubin 0.5 Direct Bilirubin 0.00 Indirect Bilirubin 0.5 Aspartate Amino Transf (AST/SGOT) Alanine Aminotransferase (ALT/SGPT) 2332 H Alkaline Phosphatase 88 Total Protein 4.9 #L Albumin 2.9 #L Globulin 2.00 Albumin/Globulin Ratio 1.45 Triglycerides Level 246 H Cholesterol Level < 50 L LDL Cholesterol, Calculated HDL Cholesterol 20 L Cholesterol/HDL Ratio Bedside Glucose 28 *L Test 04/19/17 06:28 04/19/17 06:59 04/19/17 08:25 Bedside Glucose 85 320 H 219 Medications Current Medications Morphine Sulfate/ Sodium Chloride (morphine) 100 ml @ 1 mls/hr TITRATE IV ; Start 04/19/17 at 09:30; Status UNV Lorazepam (Ativan) 1 mg Q4H PRN IV ANXIETY/SEIZURES; Start 04/19/17 at 09:30; Status UNV Assessment/Plan Chief Complaint/Hosp Course IMPRESSION AND PLAN: 1. Acute hypoxemic respiratory failure. 2. Non-ST elevation myocardial infarction. 3. Acute renal failure with severe metabolic acidosis. Now with evidence of respiratory alkalosis. 4. Lactic acidosis, possible underlying infection. 5. Code status: Do not resuscitate/do not intubate. 6. Acute renal failure with hyperkalemia secondary to septic shock. PLAN: 1. Continue volume resuscitation 2. Broad-spectrum antibiotics for now. Disposition Family requesting comfort care will confirm with primary care team and withdraw life support. Problems: KATHLEEN RDZ MD, [facility] Apr 19, 2017 09:43
--- NOTE | 2017-04-19 09:45 | PN ---
Date/Time of Note Date/Time of Note DATE: 04/19/17 TIME: 09:32 Assessment/Plan VTE Prophylaxis VTE Prophylaxis Intervention: SCD's Lines/Catheters IV Catheter Type (from Nrs): PICC Line Central line still needed: Yes (IV access) Urinary Cath still in place: Yes Reason Cath still needed: other (indicate) (ARF) Assessment/Plan Assessment/Plan 86-year-old female: 1. Acute hypoxemic respiratory failure 2ry to volume overload and Septic shock : patient intubated in ED and currently on maximum dose of Levophed and SBP in 30's to 50's, unresponsive now with worsening multiorgan failure Patient DNR and after discussion with family this AM, agreeable with comfort measures and withdrawal of care this AM. All meds d/c'd and turning Levo down to off Terminal extubation also will be ordered along with morphine gtt. 2. Acute non-ST elevation myocardial infarction, also with severe valvular disease and ?Mitral endocarditis Comfort measures and withdrawal of care today. 3. Atrial fibrillation with rapid ventricular response: Cardizem had to be stopped as patient hypotensive and on pressors. Comfort measures 4. Septic shock, lactic acid up to 15 last night, repeat lactate pending this AM , patient pancultured and on IV abx and with worsening multiorgan failure Comfort care 5. Acute Renal Failure, oligo-uric in patient with a single kidney with ongoing Lactic acidosis and recurrent Hyperkalemia and hypoglycemic events. Appreciate evaluation and recs from Nephrology Dr Sutton, now comfort measures ONLY 6. History of hypertension; all meds on hold while patient in shock state . Prophylaxis: comfort Disposition: DNR and comfort measures with withdrawal of care this AM. Subjective 24 Hr Interval Summary Free Text/Dictation Patient became unresponsive now and still with SBP 30's to 50's on maximum Levo Worsening organ failure Discussed current clinical status with family at bedside and this AM they are ready for comfort measures and withdrawal of care Exam/Review of Systems Vital Signs Vitals Vital Signs Date Time Temp Pulse Resp B/P Pulse Ox O2 Delivery O2 Flow Rate FiO2 04/19/17 09:01 72 20 51/17 99 Mechanical Ventilator 04/19/17 08:00 101.9 04/19/17 08:00 50 04/17/17 16:36 2.0 Intake and Output 04/18/17 04/18/17 04/19/17 15:00 23:00 07:00 Intake Total 2048.82 ml 1114.00 ml 900.00 ml Output Total 5 ml 35 ml 60 ml Balance 2043.82 ml 1079.00 ml 840.00 ml Exam Constitutional: frail, other (unresponsive ) Respiratory: diminished breath sounds (bases bilaterally ) Cardiovascular: irregular rhythm Gastrointestinal: distended (mild), non-tender, soft Musculoskeletal: other Extremities: normal pulses, other (mottled extremities ) Neurological: unresponsive Results Result Diagram: 04/19/17 0400 04/19/17 0400 Results 24 hrs Laboratory Tests Test 04/18/17 09:43 04/18/17 10:23 04/18/17 15:07 04/18/17 15:30 Activated Partial Thromboplast Time 73.2 *H Blood Gas Specimen Source Blood arterial Arterial Blood Date Drawn 04/18/2017 10:45:41 AM Arterial Blood pH (Temp corrected) 7.570 *H Arterial Blood pCO2 (Temp correct) 22.7 L Arterial Blood pO2 (Temp corrected) 87.3 Arterial Blood HCO3 20.3 L Arterial Blood Base Excess -0.1 Arterial Blood Oxygen Saturation 97.0 Hugo Test N/A Arterial Blood Gas Puncture Site LB Arterial Blood Carboxyhemoglobin 0.2 Arterial Blood Methemoglobin 0.3 Blood Gas A-a O2 Differential 243.7 H Oxyhemoglobin Percent 96.5 Total Hemoglobin 12.3 Blood Gas Temperature 37.0 Blood Gas Respiration Rate 18.0 Blood Gas Actual Respiration Rate 28 Blood Gas Modality VENT - AC FiO2 50.0 Blood Gas Tidal Volume 450.0 Blood Gas Low PEEP Setting 5.0 Blood Gas Critical Value Read Back Jeremiah ROSE RN Blood Gas Notified Whom JLD Blood Gas Notified Time 04/18/2017 10:57:27 AM Prothrombin Time 57.4 #H Prothrombin Time Ratio 4.5 INR International Normalized Ratio 6.37 *H Urine Eosinophils % 0.0 Urine Random Creatinine 78.71 Urine Random Sodium 28 L Urine Protein/Creatinine Ratio 1.60 Urine Total Protein 126.0 H Test 04/18/17 18:10 04/19/17 00:37 04/19/17 04:00 04/19/17 06:08 Creatine Kinase 684 #H 1065 #H Creatine Kinase Index 1.3 0.9 Creatinine Kinase MB (Mass) 9.03 H 9.60 H Troponin I 20.400 *H 23.800 *H White Blood Count 22.2 #H Red Blood Count 3.31 L Hemoglobin 10.2 L Hematocrit 32.9 L Mean Corpuscular Volume 99.4 Mean Corpuscular Hemoglobin 30.8 Mean Corpuscular Hemoglobin Concent 31.0 L Red Cell Distribution Width 13.7 Platelet Count 317 Mean Platelet Volume 11.9 H Neutrophils % Lymphocytes % Monocytes % Eosinophils % Neutrophils # Lymphocytes # Monocytes # Eosinophils # Sodium Level 138 Potassium Level 6.6 *H Chloride Level 100 Carbon Dioxide Level 13 L Anion Gap 32 H Blood Urea Nitrogen 40 H Creatinine 4.49 #H Glucose Level 47 #*L Lactic Acid Level 20.2 *H Calcium Level 6.5 L Phosphorus Level 7.1 H Magnesium Level 2.1 Total Bilirubin 0.5 Direct Bilirubin 0.00 Indirect Bilirubin 0.5 Aspartate Amino Transf (AST/SGOT) Alanine Aminotransferase (ALT/SGPT) 2332 H Alkaline Phosphatase 88 Total Protein 4.9 #L Albumin 2.9 #L Globulin 2.00 Albumin/Globulin Ratio 1.45 Triglycerides Level 246 H Cholesterol Level < 50 L LDL Cholesterol, Calculated HDL Cholesterol 20 L Cholesterol/HDL Ratio Bedside Glucose 28 *L Test 04/19/17 06:28 04/19/17 06:59 04/19/17 08:25 Bedside Glucose 85 320 H 219 Medications Medications Current Medications Diltiazem HCl (Cardizem-D5W 125 Mg/125 ml Drip) 125 ml @ 5 mls/hr TITRATE IV Last administered on 04/18/17 00:51; Admin Dose 5 MLS/HR; Start 04/17/17 at 19:30 Metoprolol Tartrate (Lopressor) 25 mg BID NGT ; Start 04/17/17 at 21:00 Morphine Sulfate 2 mg 2 mg Q3H PRN IV PAIN; Start 04/17/17 at 19:30 Norepinephrine 16 mg/Dextrose 500 ml @ 1.87 mls/hr TITRATE IV Last administered on 04/19/17 08:27; Admin Dose 56.25 MLS/HR; Start 04/17/17 at 20:00 Midazolam HCl 50 ml @ 1 mls/hr TITRATE IV Last administered on 04/18/17 16:45; Admin Dose 2 MLS/HR; Start 04/17/17 at 20:00 Fentanyl 100 ml @ 2.5 mls/hr TITRATE IV ; Start 04/17/17 at 20:00 Cefepime HCl 50 ml @ 100 mls/hr Q24H IVPB Last administered on 04/18/17 16:48 ; Admin Dose 100 MLS/HR; Start 04/18/17 at 17:00 Dextrose/Sodium Chloride (D5-1/2ns) 1,000 ml @ 75 mls/hr [id number] IV Last administered on 04/19/17 05:35; Admin Dose 75 MLS/HR; Start 04/18/17 at 12:30 IV Flush 10 ml 10 ml PRN PRN IV IV PROTOCOL; Start 04/18/17 at 13:30 Morphine Sulfate/ Sodium Chloride (morphine) 100 ml @ 1 mls/hr TITRATE IV ; Start 04/19/17 at 09:30; Status UNV Lorazepam (Ativan) 1 mg Q4H PRN IV ANXIETY/SEIZURES; Start 04/19/17 at 09:30; Status UNV BETY ELLIOTT Apr 19, 2017 09:43
[2017-04-19 09:46] LABS: LYMPHOCYTES # 0.9 10^3/ul (0.8-2.9); MONOCYTE # 0.9 10^3/ul (0.3-0.9); NEUTROPHIL # 9.5 10^3/ul (1.6-7.5); PLATELET ESTIMATE PLT APPEAR ADEQUATE
[2017-04-19] MEDS ORDERED: DIMETHICONE STICK TOP PRN (10:00)
[2017-04-19] MEDS ORDERED: ARTIFICIAL TEARS 15 ML OPH BOTH EYES PRN (10:00)
--- NOTE | 2017-04-19 10:30 | QN ---
Documentation Comment Patient has been on comfort measures, off Levophed and on morphine drip for less then 1 hr and went in cardiopulmonary arrest She was terminally extubated per protocol and on exam she has fixed and dilated pupils, no spontaneous breath sounds and heart sounds,, non responsive to noxious stimuli. no BP detected and HR of 0,asystole on monitor Patient was pronounced at 10 15 am on 04/19/17 Family at bedside notified and comforted BETY ELLIOTT Apr 19, 2017 10:30
--- NOTE | 2017-04-20 17:50 | RADRPT ---
Vent Rate: 95 bpm RR Interval: 0 msec [place] Interval: 0 msec QRS Duration: 116 msec QT Interval: 338 msec QTC Interval: 424 msec P-R-T [place]: 0 - -51 - 131 degrees Accelerated Junctional rhythm Left axis deviation Anterolateral infarct , age undetermined Abnormal ECG Electronically Signed By: Asaf Kilpatrick [id number]
== END 2017-04-19 10:15 | disposition expired | DRG 871 ==
LOC: E/R 11:43 → ICU 17:07
PROVIDERS: ADMIT Internal Medicine; ATTEND Internal Medicine
PROC: 5A1945Z Respiratory Ventilation, 24-96 Consecutive Hours (ICD-10-PCS; principal; 2017-04-17)
PROC: 0BH17EZ Insertion of Endotracheal Airway into Trachea, Via Natural or Artificial Opening (ICD-10-PCS; 2017-04-17)
PROC: 02HV33Z Insertion of Infusion Device into Superior Vena Cava, Percutaneous Approach (ICD-10-PCS; 2017-04-18)
PROC: B548ZZA Ultrasonography of Superior Vena Cava, Guidance (ICD-10-PCS; 2017-04-18)
DX: A41.9 Sepsis, unspecified organism (principal); R65.21 Severe sepsis with septic shock; I21.4 Non-ST elevation (NSTEMI) myocardial infarction; J96.01 Acute respiratory failure with hypoxia; N39.0 Urinary tract infection, site not specified; E87.0 Hyperosmolality and hypernatremia; E87.2 Acidosis; Q60.0 Renal agenesis, unilateral; D68.9 Coagulation defect, unspecified; N17.9 Acute kidney failure, unspecified; Z66 Do not resuscitate; Z51.5 Encounter for palliative care; I25.2 Old myocardial infarction; I48.2 Chronic atrial fibrillation; F41.9 Anxiety disorder, unspecified; M81.0 Age-related osteoporosis without current pathological fracture; E87.5 Hyperkalemia; I46.9 Cardiac arrest, cause unspecified
CPT/HCPCS: 31500; 36569; 36600; 71010; 74176; 76775; 76937; 80048; 80053; 80061; 80162; 81001; 81003; 82550; 82553; 82570; 82803; 82962; 83605; 83690; 83735; 84100; 84300; 84484; 84560; 85025; 85610; 85730; 87040; 87081; 89190; 93005; 93306; 94002; 94003; 94770; 96374; 96375; A4310; C1769; J0610; J0692; J1644; J1815; J2060; J2270; J2405; J3370; J7030; J7040; J7042; J7060; P9047; P9612